=== PATIENT | female | born 2000 | race Two or more races ===

== ENCOUNTER 2023-03-10 20:27 | Emergency (ER) | payer SELFPAY ==
[~2023-03-10] VITALS: Ht 157.5 cm; Wt 44.0 kg
[2023-03-10 20:34] VITALS: BP 131/70; PULSE 89; RESP 18; TEMP 99
[2023-03-10 20:49] LABS: COVID AG,FIA SOURCE NASAL SWAB
[2023-03-10 21:11] LABS: SARS-COV2 (COVID) ANTIGEN,FIA Negative (Negative)
[2023-03-10 21:15] LABS: INFLUENZA TYPE A NEGATIVE FOR TYPE A (NEGATIVE); INFLUENZA TYPE B NEGATIVE FOR TYPE B (NEGATIVE)
== END 2023-03-10 22:22 | disposition left against medical advice (07) ==
LOC: EMS 20:30
DX: R53.1 Weakness (principal); Z20.822 Contact with and (suspected) exposure to COVID-19; Z53.21 Procedure and treatment not carried out due to patient leaving prior to being seen by health care provider
CPT/HCPCS: 87804; 99281; Z7502